=== PATIENT | male | born 1970 | race Caucasian/White ===

== ENCOUNTER 2024-12-14 17:47 | Emergency (ER) | payer BC, SELFPAY ==
[2024-12-14 17:48] VITALS: BP 119/91; PULSE 120; RESP 18; TEMP 37.8; O2SAT 97; BMI 42.0
[2024-12-14 17:50] VITALS: BP 119/91; PULSE 120; RESP 18; TEMP 37.8; O2SAT 97
[2024-12-14 20:53] LABS: Hematocrit 45.3 % (40-54); Hemoglobin 15.8 g/dL (13.0-16.5); Immature Granulocytes Count 0.150 X10^3/uL (0.0-0.0); Mean Corp Hgb Conc 34.9 g/dL (32-36); Mean Corpuscular Volume 88.1 fL (80-94); Mean Platelet Vol. 9.8 fl (6.2-12.0); NRBC Flagged by Analyzer 0 % (0-5); Platelet Count 289 K/mm3 (150-450); RBC Distribution Width CV 13.6 % (11.6-14.6); RBC Distribution Width SD 44.2 fl (35.1-43.9); Red Blood Count 5.14 M/mm3 (4.6-6.2); White Blood Count 17.8 K/mm3 (4.4-11.0)
[2024-12-14 21:17] LABS: Prothrombin Time (Protime)PT. 13.9 SECONDS (11.7-14.9)
[2024-12-14 21:19] LABS: AST(SGOT) 20 U/L (<=37); Alanine Aminotransfer ALT/SGPT 22 U/L (<=46); Albumin, Serum 4.1 g/dL (3.5-5.0); Alkaline Phosphatase 85 U/L (40-129); Anion Gap 17 (5-15); BUN 18 mg/dL (4-19); BUN/Creat Ratio 11.8 RATIO (10-20); Calcium,Total 8.5 mg/dL (7.6-11.0); Carbon Dioxide 20.0 mmol/L (21.0-32.0); Chloride 101 mmol/L (98-108); Estimated Creatinine Clearance 80.33 ml/min (50-250); Globulin 3.1 g/dL (2.2-4.2); Glucose 123 mg/dL (70-99); Potassium 3.7 mmol/L (3.3-5.1)
[2024-12-14 21:22] LABS: Partial Thromboplast Time 26.3 Seconds (24.1-36.2)
[2024-12-14 21:30] VITALS: BP 161/80; PULSE 94; PULSE 96; RESP 18; TEMP 36.9; O2SAT 94; O2SAT 96
[2024-12-14 21:32] VITALS: O2SAT 95
[2024-12-14 22:00] VITALS: BP 161/80; PULSE 95; RESP 20; TEMP 36.9; O2SAT 96
--- NOTE | 2024-12-14 22:22 | CT_ITS ---
PROCEDURE: ABDOMEN/PELVIS W IV CONT ONLY 12/14/2024 REASON FOR EXAM: PERIRECTAL ABSCESS TECHNIQUE: ABDOMEN/PELVIS W IV CONT ONLY Coronal and Sagittal reconstruction series were provided. CONTRAST: Isovue-370 VOLUME: 99 mL One or more dose reduction techniques were used (e.g., Automated exposure control, adjustment of the mA and/or kV according to patient size, use of iterative reconstruction technique. RADIATION DOSE SUMMARY: CTDlvol: 24.18 mGy DLP: 1715.24 mGycm COMPARISON: None FINDINGS: The visualized lung bases are unremarkable. The heart is normal in size. The coronary arteries are not calcified. The liver is normal in size and slightly decreased in density consistent with fatty infiltration. Normal gallbladder and extrahepatic biliary system. Normal spleen. Normal pancreas. Normal bilateral adrenal glands. Normal size of the right kidney. There is no right renal mass. There are no right renal calculi. There is no right hydronephrosis. Normal visualized right ureter. Normal size of the left kidney. There is no left renal mass. 11.4 mm stone is seen in the upper pole of left kidney. There is no left hydronephrosis. Normal visualized left ureter. Normal visualized stomach. Normal small intestine. Few diverticula are seen in the large bowel without diverticulitis. The appendix is visualized and appears normal. There is no demonstrated peritoneal fluid. Normal abdominal aorta. Normal inferior vena cava. Normal retroperitoneum. Normal urinary bladder. There is no pelvic mass lesion or lymphadenopathy. There is no pelvic fluid. Perirectal inflammatory changes are seen with thickening of the perirectal fat. No abscess formation is seen. Normal osseous structures. CT/Abdomen/Pelvis W IV Cont ONLY IMPRESSION: Perirectal inflammatory changes without abscess formation at this time. Left nephrolithiasis. No ureterolithiasis or hydronephrosis. Large bowel diverticulosis, no diverticulitis. [facility]
[2024-12-14] MEDS: 0.9% Normal Saline (1000mL) 1,000 ML 999 ML IV (22:31)
[2024-12-14 23:00] VITALS: BP 139/90; PULSE 88; RESP 18; TEMP 37.3; O2SAT 93
[2024-12-14] MEDS: Piperacil/Tazobactam 3.375 GM in 0.9% Normal Saline (50mL MB+) 50 ML IV (23:00)
[2024-12-14 23:52] LABS: Procalcitonin 0.16 ng/mL (<=0.10)
[2024-12-15] VITALS: BP 125/81; PULSE 87; RESP 18; TEMP 37.3; O2SAT 92
--- NOTE | 2024-12-15 00:11 | EDS_ITS ---
HPI History of Present Illness Chief Complaint: Abscess Informant: patient and family Narrative Narrative: Patient is a 54-year-old male with past medical history of hypertension and [id number] type 2 diabetes. He states over the past 2 weeks he felt that there was a swelling and/or pressure in the gluteal/rectal region. He states in the last 1 to 2 days he has had increased pain and the area has been leaking. He states that he had a pilonidal cyst in the past and is unsure if this is something similar and secondary to this comes in for evaluation [facility] Medical History (Updated 12/15/24 @ 02:[address] Rui Huerta, DO) Type 2 diabetes mellitus Hypertension Home Medications ?Medication ?Instructions ?Recorded ?Last Taken ?Type amoxicillin 875 mg-potassium 1 tab PO BID 10 days #20 tabs 12/15/24 Unknown Rx clavulanate 125 mg tablet oxycodone-acetaminophen 5 mg-325 1 tab PO Q6H PRN pain 3 days #12 12/15/24 Unknown Rx mg tablet (Percocet) tabs Allergy/AdvReac Type Severity Reaction Status Date / Time No Known Allergies Allergy Verified 12/14/24 17:48 Family History no significant family his Surgical History (Updated 12/14/24 @ 21:34 by El Zelaya) H/O thyroidectomy Social History Smoking Status: Never smoker [facility] ED Constitutional Constitutional ED: Denies chills or fever(s) ENT ENT ED: Denies sore throat Cardiovascular Cardiovascular: Denies chest pain Respiratory/Chest Respiratory/Chest: Denies cough or dyspnea Gastrointestinal Gastrointestinal: Reports constipation; Denies abdominal pain, diarrhea, nausea or vomiting Genitourinary Genitourinary ED: Denies dysuria Musculoskeletal Musculoskeletal: Denies myalgias Integumentary Reports abscess Neurologic Neurologic: Denies headache(s) or weakness Hematologic/Lymphatic Hematologic/Lymphatic: Denies easy bleeding or easy bruising EXAM Physical Exam Const Vital Signs: 12/14/24 17:48 12/14/24 17:50 12/14/24 21:30 Temperature 100.1 F H 100.1 F H 98.4 F Temperature Source Oral Oral Oral Pulse Rate 120 H 120 H 96 Respiratory Rate 18 18 18 Blood Pressure 119/91 H 119/91 H 161/80 H Blood Pressure Mean 100 100 107 Pulse Ox 97 97 94 Oxygen Delivery Method Room Air Room Air Room Air 12/14/24 21:30 12/14/24 21:32 12/14/24 21:32 Temperature Temperature Source Pulse Rate 94 Respiratory Rate 18 Blood Pressure 161/80 H Blood Pressure Mean 107 Pulse Ox 96 95 Oxygen Delivery Method Room Air Room Air Room Air 12/14/24 22:00 12/14/24 23:00 12/15/24 00:00 Temperature 98.4 F 99.2 F H 99.2 F H Temperature Source Oral Oral Oral Pulse Rate 95 88 87 Respiratory Rate 20 H 18 18 Blood Pressure 161/80 H 139/90 H 125/81 H Blood Pressure Mean 107 106 95 Pulse Ox 96 93 92 Oxygen Delivery Method Room Air Room Air Room Air 12/15/24 00:17 Temperature 99.2 F H Temperature Source Pulse Rate 82 Respiratory Rate 18 Blood Pressure 125/81 H Blood Pressure Mean 95 Pulse Ox 92 Oxygen Delivery Method Positive well nourished, well developed and obese General Appearance ED: well developed Nutritional Appearance: obese HEENT HEENT Narrative: Normocephalic atraumatic Eyes PERRL and EOMs intact bilaterally General Eye ED: Negative for scleral icterus Neck supple Neck Narrative: No nuchal rigidity or meningeal signs Resp normal respiratory effort and clear to auscultation bilaterally Cardio regular rate and regular rhythm GI normal to inspection, nondistended, normoactive bowel sounds, non-tender, non- distended and no masses GI Narrative: No voluntary guarding or rigidity or pulsatile mass Auscultation: normoactive bowel sounds Palpation: soft Narrative: Along the inner portion of the right gluteal region there is erythema asymmetric warmth and soft tissue swelling tracking towards the rectum. There is no active drainage or discharge noted. No crepitance. No lymphangitic streaking. Skin exam is most consistent with cellulitis without obvious drainable abscess. Extremity normal to inspection Neuro oriented x3, CN's II-XII intact bilaterally and no sensory deficits noted Sensorium / Orientation: alert Motor Exam: strength 5/5 throughout Psych mental status grossly normal Skin Skin Narrative: Soft tissue changes along the right gluteal cleft/rectum consistent with perirectal cellulitis with potential abscess No lymphangitic streaking or subcutaneous emphysema noted MDM MDM MDM Narrative Medical decision making narrative: Patient presented to the ER with low-grade fever but otherwise was normotensive. He reported feeling abnormal sensation in that region for approximately 2 weeks but only increased pain and drainage over the last 1 to 2 days. History and exam is consistent with perirectal cellulitis with potential perirectal abscess. There is concern that he could have developing necrotizing fasciitis as well. Therefore basic labs were obtained with blood cultures as well as a CT scan with IV contrast. White count is elevated at approximately 18 with left shift as his absolute neutrophil count is elevated. However he does not have a lactic acidosis or elevation to his procalcitonin above 0.5. The CT scan showed changes consistent with cellulitis but no obvious drainable fluid collection. This would correlate with the fact the patient reports there was spontaneous drainage prior to arrival in the ER. There is also no note of free air indicating necrotizing fasciitis. Therefore at this time as the patient is normotensive without lactic acidosis or elevation to his procalcitonin and the CT scan does not show findings of free air or necrotizing fasciitis do not feel that he necessarily requires admission as there is no overt changes of severe sepsis and no need for emergent surgical intervention as there is no obvious drainable fluid collection. Therefore the patient will be placed on antibiotics and advised to follow-up with his doctor for further evaluation. He does understand that if his symptoms persist or worsen despite taking the medication or his blood cultures result positive then he may require admission for IV antibiotics and potential surgical intervention History & Record Review Discussion w/independent historian: Patient and Family Lab Data Attestation: I reviewed the patient's lab results. Labs: Laboratory Results - last 24 hr 12/14/24 20:42 WBC 17.8 H RBC 5.14 Hgb 15.8 Hct 45.3 MCV 88.1 MCH 30.7 MCHC 34.9 RDW Std Deviation 44.2 H RDW Coeff of Brody 13.6 Plt Count 289 MPV 9.8 Immature Gran % (Auto) 0.800 Neut % (Auto) 81.4 H Lymph % (Auto) 9.4 L [place] % (Auto) 7.0 Eos % (Auto) 0.9 Baso % (Auto) 0.5 Absolute Neuts (auto) 14.5 H Absolute Lymphs (auto) 1.67 Nucleated RBC % 0 PT 13.9 INR 1.1 APTT 26.3 Sodium 137 Potassium 3.7 Chloride 101 Carbon Dioxide 20.0 L Anion Gap 17 H BUN 18 Creatinine 1.51 H Estim Creat Clear Calc 80.33 Est GFR (MDRD) Non-Af 54 L BUN/Creatinine Ratio 11.8 Glucose 123 H Lactic Acid 1.2 Calcium 8.5 Total Bilirubin 1.08 AST 20 ALT 22 Alkaline Phosphatase 85 Total Protein 7.3 Albumin 4.1 Globulin 3.1 Albumin/Globulin Ratio 1.3 Procalcitonin 0.16 H Radiography Diagnostic Testing: Clinical Impression(s) from Imaging Studies Abdomen/Pelvis CT 12/14/24 22:22 IMPRESSION: Perirectal inflammatory changes without abscess formation at this time. Left nephrolithiasis. No ureterolithiasis or hydronephrosis. Large bowel diverticulosis, no diverticulitis. Reading Location: [place] [id number] Discharge Plan Triage Chief Complaint: Abscess ED Provider: Rui Huerta Dx/Rx/DC Orders Clinical Impression: Perirectal abscess, Perirectal cellulitis, Type 2 diabetes mellitus, Hypertension Instructions: Cellulitis Dc, ED ABSCESS Maryuri-Anal Abx only Prescriptions: New amoxicillin-pot clavulanate 875-125 mg tablet 1 tab PO BID 10 Days Qty: 20 0RF oxycodone-acetaminophen [Percocet] 5-325 mg tablet 1 tab PO Q6H PRN (Reason: pain) 3 Days Qty: 12 0RF Primary Care Provider: Sherri Tran Referrals: Sherri Tran, JUDY-C [Primary Care Provider] - Activity Restrictions/Additional Instructions: Please take the antibiotic as directed to help resolve any remaining infection. Symptoms should improve over the next 3 to 5 days. If fever persist after this time or you develop increasing redness swelling and pain or have any further concerns please return to the ER for repeat evaluation Print Language: Latvian Disposition Disposition: Home, Self Care Discharge Date/Time: 12/15/24 00:23
[2024-12-15 00:17] VITALS: BP 125/81; PULSE 82; RESP 18; TEMP 37.3; O2SAT 92
== END 2024-12-15 00:23 | disposition home or self-care (01) ==
PROVIDERS: Emergency Provider Emergency Medicine; PCP Nurse Practitioner Family; Visit Provider Emergency Medicine
DX: K61.1 Rectal abscess (principal); E11.9 Type 2 diabetes mellitus without complications; I10 Essential (primary) hypertension
CPT/HCPCS: 74177; 80053; 83605; 84145; 85025; 85610; 85730; 87040; 94760; 96365; 96375; 96376; 99284; Q9967; A4216; J2405